=== PATIENT | female | born 2000 | race Caucasian/White ===

== ENCOUNTER → 2024-10-28 11:08 | Outpatient (REF) | payer OTHER, SELFPAY | LOC: HWRAD 11:08 | PROVIDERS: ATTENDING PHYSICIAN Nurse Practitioner Adult Health | DX: J45.21 Mild intermittent asthma with (acute) exacerbation (principal) | CPT/HCPCS: 71046 ==

== ENCOUNTER 2024-11-20 11:47 | Emergency (ER) | payer OTHER, SELFPAY ==
[2024-11-20 11:48] VITALS: BP 145/101
--- NOTE | 2024-11-20 12:06 | ED.GENMED ---
History of Present Illness
General
Chief Complaint: Allergic Reaction
Source: patient
Exam Limitations: none
Time Seen by Provider: 11/20/24 11:54
Nursing documentation reviewed up to this point in time: agreed with
History of Present Illness
History of Present Illness:
24-year-old female with past history of asthma presents to the ER for evaluation. Patient has had intermittent rashes and welts since August. She was seen by her family doctor and has an appointment with store sales leader scheduled December 03. On
Saturday however patient started with rash again and also cold symptoms. She was given Zithromax by urgent care. Her strep was negative. She did a home COVID test which was negative she denies any fevers. With recent URI and continued itchy
rash patient comes to the ER. She does feel that now her asthma is acting up and she was having difficulty breathing this morning which is what prompted patient to come to the ER.
She is on a steroid inhaler for asthma and has been taking Claritin. She took 2 Claritin's today.
Phy Exam
General Physical Exam
General Presentation: no apparent distress
General age: appears stated age
General Skin: warm and dry
General Habitus: normal
General Mental: alert
General Hydration: appears well hydrated
ENT Exam
ENT Exam: EOMI, pharynx normal, neck supple and other (No lip or tongue swelling)
Cardiovascular Exam
Cardiovascular Exam: regular rate/rhythm, no murmur and normal peripheral pulses
Pulmonary Exam
Pulmonary Exam: lungs clear and no respiratory distress
Neurological Exam
Neurological Exam: alert and oriented x3
Musculoskeletal Exam
Musculoskeletal Exam: full ROM
Skin Exam
Skin Exam: normal color, warm/dry and other (scattered areas of redness to extremities, small hives to b/l legs )
Psychiatric Exam
Psychiatric Exam: normal mood/affect
Course
Orders/Labs/Results
Orders:
Orders
11/20/24 12:06
Albuterol Nebs [Ventolin Nebules] 2.5 mg INH R NOW STA
Dexamethasone Pf [Decadron] 10 mg PO NOW STA
11/20/24 12:08
Famotidine [Pepcid] 20 mg PO NOW STA
Vital Signs
Initial and Last Documented VS:
Initial Vital Signs
Temp Pulse Resp BP Pulse Ox
98.4 F 104 20 145/101 98
11/20/24 11:48 11/20/24 11:48 11/20/24 11:48 11/20/24 11:48 11/20/24 11:48
Last Documented Vital Signs
Temp Pulse Resp BP Pulse Ox
98.4 F 98 18 139/74 99
11/20/24 11:48 11/20/24 12:44 11/20/24 12:44 11/20/24 12:44 11/20/24 12:44
MDM/Problems Addressed
Differential Diagnosis Includes:
Not limited to allergic reaction, rash, asthma exacerbation viral syndrome
MDM/Problems Addressed:
Patient with mild URI, tested negative for COVID at home no fevers and afebrile here. Patient with asthma exacerbation for the past several days and intermittent rash that she has had since August. She presents awake alert in no acute distress
lungs are clear no wheezing no difficulty breathing afebrile nontachypneic nontachycardic. She did take clear Claritin today. She was given oral Decadron and a neb and feeling much better. She did addition was given Pepcid.
She does have an appointment with store sales leader December 03 DC with steroid taper.
Patient does admit to vaping (nicotine), she has not vaped recently( with recent URI s/s ) I did review with her the dangers of vaping and encouraged cessation.
Chronic conditions affecting care:
Asthma patient vapes nicotine
*Pulse Oximetry
SaO2: 98
Oxygen Mode of Delivery: Room air
Patient hypoxic: no
*Critical Care Note
Total Time (30-74mins, 75-104mins- exclusive of procedures): Not Applicable
ED Attending Note
-
Portions of this chart may have been created with voice recognition software.� Occasional wrong word or��sound alike� substitutions may have occurred due to the inherent limitations of voice recognition software.
Discharge Plan
Departure
Patient Disposition: Home (Routine Discharge)
Date of Disposition: 11/20/24
Time of Disposition: 12:58
Patient with high blood pressure during this ER visit?: Yes
Condition: Fair
Covid-19: Not Applicable
Discharge Problem:
Asthma exacerbation, Rash
Instructions: Asthma in adults - ED (DC), BLOOD PRESSURE
Prescriptions:
New
prednisone 10 mg Tablet
See Rx Instructions .ROUTE .COMPLEX Qty: 30 0RF
Rx Instructions:
Take By Mouth:
40 mg daily x3 days, 30 mg daily x3 days,
20 mg daily x3 days, 10 mg daily x3 days.
Referrals:
MastersAllie MD [Family Provider, Internal Medicine]
Activity Restrictions/Additional Instructions:
As discussed continue to use your rescue inhaler for asthma along with your steroid inhaler.
A prescription for oral steroid taper was sent to your pharmacy take as directed starting
In addition you may continue to take Claritin [id number] for allergies and please add oral [id number] Pepcid 20 mg daily for the next week
Follow-up with your family doctor in the next 2 days as well as your store sales leader as scheduled.
Return if any worsening of symptoms.
Interventions
Interventions:
*Risk Screen - Suicide Last Done: 11/20/24 11:48
*General Assessment Last Done: 11/20/24 12:04
*Neglect/Abuse Screening Last Done: 11/20/24 11:48
ED- Cardiac Assessment Last Done: 11/20/24 12:04
ED- Pulmonary Assessment Last Done: 11/20/24 12:06
ED-Skin Assessment Last Done: 11/20/24 12:04
Discharge Date and Time
Print Language: CZECH
[2024-11-20] MEDS: DECADRON 10 MG PO (12:10)
[2024-11-20] MEDS: VENTOLIN NEBULES 2.5 MG INH (12:10)
[2024-11-20] MEDS: PEPCID 20 MG PO (12:11)
[2024-11-20 12:44] VITALS: BP 139/74
== END 2024-11-20 13:47 | disposition home or self-care (01) ==
LOC: EMR 11:47
PROVIDERS: EMERGENCY PHYSICIAN Emergency Medicine; FAMILY PHYSICIAN Internal Medicine
DX: J45.901 Unspecified asthma with (acute) exacerbation (principal); R21 Rash and other nonspecific skin eruption; F17.290 Nicotine dependence, other tobacco product, uncomplicated
CPT/HCPCS: 94640; 99283